=== PATIENT | male | born 1960 | race Caucasian/White ===

== ENCOUNTER → 2021-06-27 | Outpatient (CLI) | payer SELFPAY | LOC: MRI 14:20 | PROVIDERS: ATTEND Internal Medicine | DX: M51.36 Other intervertebral disc degeneration, lumbar region (principal); M54.42 Lumbago with sciatica, left side | CPT/HCPCS: 72148 ==

== ENCOUNTER → 2022-12-15 | Outpatient (CLI) | payer OTHER | LOC: US 14:15 | PROVIDERS: ATTEND Internal Medicine | DX: R16.1 Splenomegaly, not elsewhere classified (principal); R10.12 Left upper quadrant pain | CPT/HCPCS: 76700 ==

== ENCOUNTER 2025-04-27 14:55 | Emergency (ER) | payer OTHER ==
[~2025-04-27] VITALS: Ht 188 cm; Wt 136.1 kg
[2025-04-27 16:10] VITALS: TEMP 97
[2025-04-27] MEDS ORDERED: SODIUM CHLORIDE FLUSH 10 ML SYR IV PRN (16:30)
[2025-04-27 16:50] LABS: BASOPHILS % 0.7 % (0.0-1.0); EOSINOPHILS % 1.6 % (0.0-6.0); LYMPHOCYTES % 25.9 % (18.0-39.1); MONOCYTES % 7.2 % (4.4-11.3); NEUTROPHILS % 64.5 % (38.7-80.0); RED CELL DISTRIBUTION WIDTH 12.2 % (11.7-14.4)
[2025-04-27 17:11] LABS: EST GLOMERULAR FILTRATION RATE 103.0 ML/MIN (>=60)
[2025-04-27 17:29] LABS: LEUKOCYTE ESTERASE ,URINE NEGATIVE (NEGATIVE); PROTEIN,URINE DIPSTICK NEGATIVE (NEGATIVE); URINE UROBILINOGEN 0.2 mg/dL (0.2 - 1)
[2025-04-27 17:36] LABS: WBC,URINE (MAN) 0-5 /HPF (0-5)
[2025-04-27 18:33] VITALS: PULSE 68; RESP 15
[2025-04-27] MEDS: MECLIZINE HCL 12.5 MG TAB PO ONE (19:54)
[2025-04-27] MEDS ORDERED: ANTIVERT25 M1 PO (20:31)
[2025-04-27 20:39] VITALS: BP 150/85; PULSE 74; RESP 15; TEMP 98.5; O2SAT 99
[2025-04-27] MEDS ORDERED: IOPAMIDOL 370 MG/ML 100 ML INFUS..BTL INJ ONE (20:58)
== END 2025-04-27 20:42 | disposition home or self-care (01) ==
LOC: ER 19:04
DX: R42 Dizziness and giddiness (principal); I70.90 Unspecified atherosclerosis; I10 Essential (primary) hypertension; E11.65 Type 2 diabetes mellitus with hyperglycemia; E78.5 Hyperlipidemia, unspecified; M54.9 Dorsalgia, unspecified; G89.29 Other chronic pain
CPT/HCPCS: 36415; 70496; 70498; 80053; 81001; 84484; 85025; 93005; 99284; J8597; Q9967